=== PATIENT | female | born 1970 | race Caucasian/White ===

== ENCOUNTER 2021-01-21 18:40 | Emergency (ER) | payer MEDICAID, OTHER ==
[~2021-01-21] VITALS: Ht 160 cm; Wt 65.8 kg
[2021-01-21 19:04] VITALS: BP 177/96
--- NOTE | 2021-01-21 19:37 | NUR ---
RECEIVED PT IN BED 8 WITH C/O DIZZINESS , HEADACHE , NICOLAS EYE & HANDS PAIN X 4 DAYS. BP 177/96 AT THIS TIME. PMH HTN. IS AWAKE AND ALERT, AMBULATES WITH STEADY GAIT.
[2021-01-21] MEDS ORDERED: NACL 0.9% 1,000 ML IV ONE (20:10)
[2021-01-21] MEDS ORDERED: diphenhydrAMINE 50 MG/ML VIAL IVP ONE (20:10)
[2021-01-21] MEDS ORDERED: PROCHLORPERAZINE 10 MG/2 ML VIAL IVP ONE (20:10)
--- NOTE | 2021-01-21 20:35 | NUR ---
IV ESTABLISHED, LABS DRAWN FOLLOWED BY MEDS ORDERED
[2021-01-21 20:54] LABS: BASOPHILS % (AUTO) 0.3 % (0.0-2.0); EOSINOPHILS # (AUTO) 0.1 K/uL (0-0.4); EOSINOPHILS % (AUTO) 1.1 % (0.0-4.0); HEMATOCRIT 38.3 % (36-48); HEMOGLOBIN 13.1 g/dL (12.0-16.0); LYMPHOCYTES % (AUTO) 25.8 % (20.5-51.1); MEAN CORPUSCULAR HEMOGLOBIN 30 pg (27-31); MEAN CORPUSCULAR HGB CONC 34 g/dL (33-37); MEAN CORPUSCULAR VOLUME 87.7 fL (80-94); MONOCYTES # (AUTO) 0.5 K/uL (0.8-1.0); MONOCYTES % (AUTO) 6.4 % (1.7-9.3); NEUTROPHILS # (AUTO) 5.1 K/uL (1.8-7.7); NEUTROPHILS % (AUTO) 66.4 % (42.2-75.2); PLATELET COUNT (AUTO) 245 K/uL (140-450); RED BLOOD CELL COUNT(AUTO) 4.36 MIL/uL (4.20-5.40); RED CELL DISTRIBUTION WIDTH 13.1 % (11.6-13.7); WHITE BLOOD COUNT (AUTO) 7.7 K/uL (4.8-10.8)
[2021-01-21 21:15] LABS: ALBUMIN 4.1 g/dL (3.4-5.0); ANION GAP 12.7 (8-16); CARBON DIOXIDE 27.7 mmol/L (21-32); CREATININE 0.7 mg/dL (0.6-1.3); POTASSIUM 3.4 mmol/L (3.5-5.1); TOTAL BILIRUBIN 0.3 mg/dL (0.0-1.0)
[2021-01-21] MEDS ORDERED: amLODIPine 5 MG TAB PO ONE (21:40)
[2021-01-21] MEDS ORDERED: POTASSIUM CHLORIDE 10 MEQ TABER PO ONE (21:40)
[2021-01-21] MEDS ORDERED: AMLO5TAB PO (22:27)
[2021-01-21 22:40] VITALS: BP 178/86
--- NOTE | 2021-01-21 22:40 | NUR ---
Patient discharged with v/s stable. Written and verbal after care instructions given and explained. Patient alert, oriented and verbalized understanding of instructions. Ambulatory with steady gait. All questions addressed prior to discharge. ID band removed. Patient advised to follow up with PMD. Rx of NORVASC given. Patient educated on indication of medication including possible reaction and side effects. Opportunity to ask questions provided and answered.
== END 2021-01-21 22:40 | disposition home or self-care (01) ==
LOC: MED 18:40
DX: R10.30 Lower abdominal pain, unspecified (principal); E87.6 Hypokalemia; I10 Essential (primary) hypertension
CPT/HCPCS: 36415; 71045; 80053; 81025; 84484; 85025; 93005; 96361; 96374; 96375; 99285; J0780; J1200; J7030; Q0092

== ENCOUNTER 2022-05-31 11:24 | Emergency (ER) | payer OTHER ==
[~2022-05-31] VITALS: Ht 160 cm; Wt 82.2 kg
[~2022-05-31 11:24] MED LIST: AMLO5TAB PO
[2022-05-31 11:30] VITALS: BP 194/127
--- NOTE | 2022-05-31 11:37 | NUR ---
PT AMB TO BED 3.
--- NOTE | 2022-05-31 11:38 | NUR ---
BIB SELF C/O LIP SWELLING, ADAMS, MID CHEST PAIN,DIFFICULTY BREATHING , RASH WHOLE BODY X 5 DAYS. O2SAT 98%. BP 194/127 AT THIS TIME. PMH: DENIES
[2022-05-31] MEDS ORDERED: diphenhydrAMINE 50 MG CAP PO ONE (12:05)
[2022-05-31] MEDS ORDERED: DIPH25TA53 PO (12:27)
[2022-05-31] MEDS ORDERED: PRED20TA5 PO (12:27)
[2022-05-31 12:45] VITALS: BP 173/88
--- NOTE | 2022-05-31 12:45 | NUR ---
Patient discharged with v/s stable. Written and verbal after care instructions given and explained. Patient alert, oriented and verbalized understanding of instructions. Ambulatory with steady gait. All questions addressed prior to discharge. ID band removed. Patient advised to follow up with PMD. Rx of BENADRYL, DELTASONE given. Patient educated on indication of medication including possible reaction and side effects. Opportunity to ask questions provided and answered.
== END 2022-05-31 12:45 | disposition home or self-care (01) ==
LOC: MED 11:24
DX: R21 Rash and other nonspecific skin eruption (principal); J02.9 Acute pharyngitis, unspecified; R06.02 Shortness of breath; I10 Essential (primary) hypertension; Z90.49 Acquired absence of other specified parts of digestive tract; Z79.899 Other long term (current) drug therapy
CPT/HCPCS: 99283; Q0163

== ENCOUNTER 2023-08-07 16:21 | Emergency (ER) | payer OTHER ==
[~2023-08-07] VITALS: Ht 157.5 cm; Wt 84.4 kg
[~2023-08-07 16:21] MED LIST changes: +DIPH25TA53 PO; +PRED20TA5 PO
[2023-08-07 16:25] VITALS: BP 195/102; PULSE 90; RESP 18; TEMP 97.8; O2SAT 98
[2023-08-07] MEDS ORDERED: METOCLOPRAMIDE 10 MG/2 ML INJ VIAL IM ONE (16:45)
[2023-08-07] MEDS ORDERED: KETOROLAC 30 MG/ML VIAL IM ONE (16:45)
[2023-08-07 17:00] LABS: BASOPHILS # (AUTO) 0.1 K/uL (0.00-0.22); BASOPHILS % (AUTO) 0.7 % (0.0-2.0); EOSINOPHILS # (AUTO) 0.1 K/uL (0-0.4); EOSINOPHILS % (AUTO) 1.6 % (0.0-4.0); HEMATOCRIT 39.3 % (36-48); HEMOGLOBIN 13.5 g/dL (12.0-16.0); LYMPHOCYTES # (AUTO) 2.8 K/uL (2.5-16.5); LYMPHOCYTES % (AUTO) 40.2 % (20.5-51.1); MEAN CORPUSCULAR HEMOGLOBIN 30 pg (27-31); MEAN CORPUSCULAR HGB CONC 34 g/dL (33-37); MONOCYTES # (AUTO) 0.6 K/uL (0.8-1.0); MONOCYTES % (AUTO) 8.2 % (1.7-9.3); NEUTROPHILS # (AUTO) 3.4 K/uL (1.8-7.7); NEUTROPHILS % (AUTO) 49.3 % (42.2-75.2); PLATELET COUNT (AUTO) 266 K/uL (140-450); RED BLOOD CELL COUNT(AUTO) 4.57 MIL/uL (4.20-5.40); RED CELL DISTRIBUTION WIDTH 14.2 % (11.6-13.7)
[2023-08-07] MEDS: KETOROLAC 30 MG/ML VIAL IVP ONE (17:07)
[2023-08-07] MEDS: METOCLOPRAMIDE 10 MG/2 ML INJ VIAL IVP ONE (17:07)
[2023-08-07 17:12] LABS: ANION GAP 15.1 (8-16); CALCIUM 8.9 mg/dL (8.5-10.1); CARBON DIOXIDE 27.8 mmol/L (21-32); CREATININE 0.8 mg/dL (0.6-1.3); POTASSIUM 3.9 mmol/L (3.5-5.1)
[2023-08-07 17:12] LABS: APPEARANCE,URINE CLEAR (CLEAR); BILIRUBIN,URINE NEGATIVE (NEGATIVE); BLOOD, URINE 2+ (NEGATIVE); COLOR,URINE YELLOW (YELLOW); LEUKOCYTE ESTERASE ,URINE NEGATIVE (NEGATIVE); NITRITE, URINE NEGATIVE (NEGATIVE); PH,URINE 6.5 (5.0-9.0); PROTEIN,URINE 1+ (NEGATIVE); UGLUCOSE NEGATIVE (NEGATIVE); UROBILINOGEN,URINE 0.2 EU/dL (0.2 - 1)
[2023-08-07 17:31] LABS: ALANINE AMINOTRANSFERASE 31 U/L (12-78); ALBUMIN 3.9 g/dL (3.4-5.0); ALKALINE PHOSPHATASE 91 U/L (50-136); ASPARTATE AMINOTRANSFERASE 47 U/L (15-37); LIPASE 43 U/L (16-77); TOTAL BILIRUBIN 0.5 mg/dL (0.0-1.0)
[2023-08-07 17:35] LABS: BACTERIA,URINE FEW /HPF (None Seen); MUCUS,URINE None Seen /LPF (None Seen); SQUAMOUS EPITHELIAL CELL,UR 0-3 (FEW) /LPF (0-3 (FEW)); TRICHOMONAS,URINE None Seen /HPF (None Seen); WBC,URINE 0-5 /HPF (0-5); WHITE BLOOD CELL CASTS,URINE None Seen /LPF (None Seen); YEAST,URINE None Seen /HPF (None Seen)
[2023-08-07 17:38] LABS: FREE T4 (FREE THYROXINE) 0.72 ng/dL (0.76-1.46); THYROID STIMULATING HORMONE 4.55 uIU/mL (0.34-3.74)
[2023-08-07] MEDS ORDERED: METO-485 PO (17:50)
[2023-08-07] MEDS ORDERED: IBUP-2213 PO (17:50)
[2023-08-07 18:08] VITALS: BP 135/82; PULSE 88; RESP 16; TEMP 98; O2SAT 99
== END 2023-08-07 18:08 | disposition home or self-care (01) ==
LOC: MED 16:21
DX: R42 Dizziness and giddiness (principal); R03.0 Elevated blood-pressure reading, without diagnosis of hypertension; R51.9 Headache, unspecified; R11.0 Nausea; R07.9 Chest pain, unspecified; R53.83 Other fatigue; M54.2 Cervicalgia; R00.2 Palpitations; Z90.49 Acquired absence of other specified parts of digestive tract; Z79.899 Other long term (current) drug therapy
CPT/HCPCS: 36415; 80048; 80076; 81001; 83690; 84439; 84443; 84484; 85025; 93005; 96374; 96375; 99284; J1885; J2765